=== PATIENT | female | born 1985 | race African-American/Black ===

== ENCOUNTER → 2020-09-28 12:52 | Outpatient (CLI) | payer BC ==
[2020-04-28 16:26] VITALS: BMI 29.1
[~2020-09-28 12:52] MED LIST: ACETAMINOPHEN500 M1 PO; IBUPROFEN600 MG PO; KEFLEX500 MG PO; PERCOCET 5-3251 TAB PO; REGLAN5 MG PO
[2020-09-28 14:35] LABS: BILIRUBIN NEGATIVE (NEGATIVE); KETONE LARGE mg/dL (NEGATIVE); NITRITE NEGATIVE (NEGATIVE); UROBILINOGEN NORMAL mg/dL (< 2)
== END | disposition home or self-care (01) ==
LOC: D.LDO 12:52
PROVIDERS: ATTEND Obstetrics & Gynecology
DX: O26.899 Other specified pregnancy related conditions, unspecified trimester (principal); R11.2 Nausea with vomiting, unspecified; R19.7 Diarrhea, unspecified; R10.9 Unspecified abdominal pain